=== PATIENT | female | born 1950 | race Caucasian/White ===

== ENCOUNTER 2016-07-20 06:53 | Emergency (ER) ==
[2016-07-20 07:02] VITALS: BP 163/52; TEMP 97.3; BMI 38.7
--- NOTE | 2016-07-20 07:10 | ED.PDOC ---
General ED Provider: Dr. RENETTA CARVAJAL-ER Chief Complaint: Extremity Swelling/Pain Stated Complaint: my leg is swelling Time Seen by Physician: 07:00 Mode of Arrival: Walk-In Information Source: Patient Exam Limitations: No limitations Primary Care Provider: RENETTA CARVAJAL Nursing and Triage Documentation Reviewed and Agree: Yes Musculoskeletal Complaint Exam - Lower Extremity Complaint/Exam Location of Pain: Reports: Right, Leg Mechanism of Injury: Reports: No known trauma Onset/Duration: 24hrs Symptoms Are: Still present Onset of Pain: Reports: Immediate Initial Severity: Mild Current Severity: Mild Location: Reports: Discrete (rle ) Character: Reports: Dull, Aching Alleviating: Reports: None Aggravating: Reports: Movement, Weight bearing Able to Bear Weight: Yes Associated Signs and Symptoms: Reports: Swelling. Denies: Redness, Bruising, Fever, Weakness, Numbness, Tingling Septic Arthritis Risk Factors: Reports: None Related Surgical History: Reports: None Lower Extremity Findings: Present: Swelling, Tenderness, Limited range of motion NV Bundle Intact Distal to Injury: Yes Compartment Syndrome Risk Factors: Present: Pain. Absent: Paralysis, Pallor, Pulselessness, Paresthesias Harrison's Sign Present: Yes Differential Diagnoses: DVT Review of Systems - Review Of Systems Constitutional: Reports: No symptoms Eyes: Reports: No symptoms Ears, Nose, Mouth, Throat: Reports: No symptoms Respiratory: Reports: No symptoms Cardiac: Reports: No symptoms GI: Reports: No symptoms : Reports: No symptoms Musculoskeletal: Reports: Muscle pain Skin: Reports: No symptoms Neurological: Reports: No symptoms Endocrine: Reports: No symptoms Hematologic/Lymphatic: Reports: No symptoms All Other Systems: Reviewed and Negative Past Medical History - Past Medical History Previously Healthy: No Endocrine: Reports: Dyslipidemia Cardiovascular: Reports: Hypertension Respiratory: Reports: None Hematological: Reports: None Gastrointestinal: Reports: None Genitourinary: Reports: None Neuro/Psych: Reports: None Musculoskeletal: Reports: None Cancer: Reports: None Last Menstrual Period: hysterectomy - Surgical History General Surgical History: Reports: None - Family History Family History: Reports: None - Social History Smoking Status: Never smoker Hx Substance Use: No Alcohol Screening: None Lives: With family Physical Exam - Physical Exam Appearance: Well-appearing, No pain distress, Well-nourished Pain Distress: Mild Eyes: PASCALE, EOMI, Conjunctiva clear ENT: Ears normal, Nose normal, Oropharynx normal Neck: Supple Respiratory: Airway patent, Breath sounds clear, Breath sounds equal, Respirations nonlabored Cardiovascular: RRR, Pulses normal, No rub, No murmur GI/: Soft, Nontender, No masses, Bowel sounds normal, No Organomegaly Musculoskeletal: ROM intact, No edema, No calf tenderness, Limited ROM Skin: Warm Neurological: Sensation intact, Motor intact, Reflexes intact, Cranial nerves intact, Alert, Oriented Psychiatric: Affect appropriate Physician Notification - Case Discussed Physician Notified: dr rogers --[facility]--graciously accepted Time of Notification: 07:13 Critical Care Note - Critical Care Note Total Time (mins): 0 Course - Course Orders, Labs, Meds: Orders Category Date Time Status TRANSFER TO OUTSIDE FACILITY .TO [facility] 07/20/16 07:12 Active ([facility], [place]) WRITE TRANSFER/[facility] NOTE ONCE CARE 07/20/16 07:12 Active DISCHARGE ASSESSMENT ONCE DISCHARGE 07/20/16 07:12 Active WRITE DISCHARGE NOTE ONCE DISCHARGE 07/20/16 07:12 Active Vital Signs: Temp Pulse Resp BP Pulse Ox 07/20/16 06:54 97.3 F L 81 20 163/52 H 97 Departure - Departure Time of Disposition: 07:10 Disposition: TSF SHORT-TRM HOSP Discharge Problem: Pain in right lower leg Instructions: Leg Pain (ED) Condition: Good Pt referred to PMD for follow-up: Yes Additional Instructions: go straight to [facility] and see dr rogers Allergies/Adverse Reactions: Allergies No Known Allergies Allergy (Verified 07/20/16 07:02) Home Medications: Ambulatory Orders Clonidine HCl 0.1 mg PO BID 03/27/16 Lisinopril [Zestril] 20 mg PO BID 03/27/16 Rosuvastatin Calcium [Crestor] 5 mg PO BEDTIME 03/27/16 Cholecalciferol (Vitamin D3) [Vitamin D3] 1,000 unit PO DAILY 07/20/16 Citalopram Hydrobromide [Citalopram HBr] 40 mg PO DAILY 07/20/16 Multivitamin [Multi-Vitamin Daily] 1 each PO DAILY 07/20/16 Nifedipine [Nifedipine ER] 30 mg PO DAILY 07/20/16 [place]-3/Dha/Epa/Fish Oil [[place]-3 Fish Oil 1,200 mg Sfgl] 1,200 mg PO DAILY Triamterene/Hydrochlorothiazid [Dyazide] 1 cap PO DAILY 07/20/16 Disposition Discussed With: Patient
== END 2016-07-20 07:45 | disposition short-term general hospital (02) ==
LOC: ED 06:53
DX: M79.604 Pain in right leg (principal); M79.89 Other specified soft tissue disorders
CPT/HCPCS: 99285

== ENCOUNTER 2020-04-04 23:42 | Observation (INO) ==
[2020-04-05 00:16] LABS: HEMOGLOBIN 14.3 g/dl (12.0-16.0); MEAN CORPUSCULAR HEMOGLOBIN 31.3 pg (27.0-31.0); MEAN CORPUSCULAR HGB CONC 34.9 (31.8-35.4); MEAN CORPUSCULAR VOLUME 89.7 fl (81.0-99.0); PLATELET COUNT 195 10^3/uL (140-440); RDW COEFFICIENT OF VARIATION 12.4 % (11.6-14.8); RED BLOOD COUNT 4.57 10^6/ul (4.20-5.40); WHITE BLOOD COUNT 9.62 K/ul (4.6-10.2)
[2020-04-05 00:18] LABS: BILIRUBIN,URINE Negative (NEGATIVE); CLARITY,URINE Slightly (CLEAR); COLOR,URINE Yellow (YELLOW); GLUCOSE, URINE (UA) Negative (NEGATIVE); KETONES,URINE Negative (NEGATIVE); LEUKOCYTE ESTERASE ,URINE 3+ (NEGATIVE); NITRITE,URINE Negative (NEGATIVE); PROTEIN,URINE Negative (NEGATIVE); URINE, BLOOD 1+ (NEGATIVE); UROBILINOGEN,URINE 0.2 (0.2)
[2020-04-05 00:27] LABS: ANISOCYTOSIS NOT PRESENT (NOT PRESENT)
[2020-04-05 00:29] LABS: AMORPHOUS SEDIMENT,UR TRACE (NOT PRESENT); BACTERIA,URINE TRACE (NOT PRESENT); URINE WBC, MICROSCOPIC 20-30 (0-2)
[2020-04-05 00:34] LABS: ALBUMIN 4.55 g/dL (3.5-5.0); ASPARTATE AMINO TRANSFERASE 35.1 U/L (14-36); BILIRUBIN,TOTAL 0.42 mg/dL (0.2-1.3); BLOOD UREA NITROGEN 21.5 mg/dL (7-17); CALCIUM 9.48 mg/dL (8.4-10.2); CARBON DIOXIDE 24.2 mmol/L (22-30.0); CHLORIDE 105.3 mmol/L (98-107); CREATINE KINASE 60.1 U/L (30-135); CREATININE 0.71 mg/dL (0.60-1.30); GLUCOSE 120.3 mg/dL (74-106); POTASSIUM 4.03 mmol/L (3.5-5.1); SODIUM 136.7 mmol/L (134.5-145); TOTAL PROTEIN 7.55 g/dL (6.3-8.2)
[2020-04-05 00:49] LABS: TROPONIN I < 0.012 ng/ml (0.0000-0.120)
[2020-04-05 00:51] LABS: ERYTHROCYTE SEDIMENTATION RATE 17 mm/hr (0-20)
[2020-04-05] MEDS ORDERED: NITROSTAT SL PRN (01:19)
[2020-04-05] MEDS ORDERED: ATROPINE SULFATE PFS IVP PRN (01:19)
[2020-04-05] MEDS ORDERED: TYLENOL PO PRN (01:19)
--- NOTE | 2020-04-05 01:19 | ED.PDOC ---
General ED Provider: Dr. RENETTA CARVAJAL-ER Chief Complaint: Extremity Pain/Injury Stated Complaint: yanna been exercising and my arms hurt Time Seen by Physician: 01:15 Mode of Arrival: Walk-In Information Source: Patient Exam Limitations: No limitations Primary Care Provider: RENETTA CARVAJAL Nursing and Triage Documentation Reviewed and Agree: Yes Does patient meet sepsis criteria?: No System Inflammatory Response Syndrome: Not Applicable Sepsis Protocol: For patient's 13 years and over: Temp is 96.8 and below OR 101 and greater Pulse >90 BPM Resp >20/minute Acutely Altered Mental Status Are patient's symptoms suggestive of a new infection, such as: -Pneumonia -Skin, Soft Tissue -Endocarditis -UTI -Bone, Joint Infection -Implantable Device -Acute Abdominal Infection -Wound Infection -Meningitis -Blood Stream Catheter Infection -Unknown Musculoskeletal Complaint Exam Upper Extremity Complaint/Exam Location of Pain: Reports Right, Left and Arm Mechanism of Injury: Reports No known trauma Symptoms Are: Resolved Timing: Intermittent Episodes Lasting: Minutes Initial Severity: Mild Current Severity: Mild Location: Reports Discrete Character: Reports Dull and Aching Alleviating: Reports None Non-Orthopedic Risk Factors: Reports None NV Bundle Intact Distal to Injury: Yes Compartment Syndrome Risk Factors: Present Pain Differential Diagnoses: Strain, Sprain and Other Quality Indicator For Non-Traumatic Chest Pain/Syncope: EKG Performed Review of Systems Review Of Systems Constitutional: Reports No symptoms Eyes: Reports No symptoms Ears, Nose, Mouth, Throat: Reports No symptoms Respiratory: Reports No symptoms Cardiac: Reports No symptoms GI: Reports No symptoms : Reports No symptoms Musculoskeletal: Reports No symptoms Skin: Reports No symptoms Neurological: Reports No symptoms Endocrine: Reports No symptoms Hematologic/Lymphatic: Reports No symptoms All Other Systems: Reviewed and Negative [facility] Female Reproductive History Menstrual Hx Hysterectomy: Yes Hx Tubal Ligation: No Physical Exam Physical Exam Appearance: Reports Well-appearing Ill-appearing: None Pain Distress: Mild Eyes: Reports PASCALE, EOMI and Conjunctiva clear ENT: Reports Ears normal, Nose normal and Oropharynx normal Neck: Supple Respiratory: Reports Airway patent, Breath sounds clear and Breath sounds equal Cardiovascular: Reports RRR, Pulses normal, No rub and No murmur GI/: Reports Soft, Nontender, No masses, Bowel sounds normal and No Organomegaly Musculoskeletal: Reports Normal strength, ROM intact, No edema and No calf tenderness Skin: Reports Warm, Dry and Normal color Neurological: Reports Sensation intact, Motor intact, Reflexes intact, Cranial nerves intact, Alert and Oriented Psychiatric: Reports Affect appropriate, Mood appropriate and Anxious Critical Care Note Critical Care Note Total Critical Care Time (mins): 0 Course Course Hematology/Chemistry: 04/05/20 00:10 04/05/20 00:10 Orders, Labs, Meds: Lab Review 04/05/20 04/05/20 04/05/20 00:05 00:10 00:10 WBC 9.62 RBC 4.57 Hgb 14.3 Hct 41.0 MCV 89.7 MCH 31.3 H MCHC 34.9 RDW Coeff of Yakov 12.4 Plt Count 195 Neutrophils % (Manual) 40.0 L Lymphocytes % (Manual) 46.0 Monocytes % (Manual) 9.0 Reactive Lymphocytes 5.0 Anisocytosis Not present ESR 17 Sodium 136.7 Potassium 4.03 Chloride 105.3 Carbon Dioxide 24.2 Anion Gap 11.23 BUN 21.5 H Creatinine 0.71 Estimated GFR (MDRD) 82.00 BUN/Creatinine Ratio 30.28 Glucose 120.3 H Calcium 9.48 Total Bilirubin 0.42 AST 35.1 ALT 24.0 Alkaline Phosphatase 105.0 Total Creatine Kinase 60.1 Troponin I < 0.012 Total Protein 7.55 Albumin 4.55 Globulin 3.00 Albumin/Globulin Ratio 1.51 Urine Color Yellow Urine Clarity Slightly Urine pH 5.0 Ur Specific Bow[place] 1.020 Urine Protein Negative Urine Glucose (UA) Negative Urine Ketones Negative Urine Blood 1+ H Urine Nitrite Negative Urine Bilirubin Negative Urine Urobilinogen 0.2 Ur Leukocyte Esterase 3+ H Urine Microscopic RBC 5-10 Urine Microscopic WBC 20-30 Ur Squamous Epith Cells 2-5 Ur Renal Epithelial Cell 2-5 Amorphous Sediment Trace Urine Bacteria Trace Orders Category Date Time Status EKG-(ED ONLY) Stat CARDIO 04/05/20 00:01 Ordered ED OPERATIONS EXAMINER APPLIED .ONCE EMERGENCY 04/05/20 00:01 Active CBC W/ AUTO DIFF Stat LAB 04/05/20 00:10 Completed COMPREHENSIVE METABOLIC PANEL Stat LAB 04/05/20 00:10 Completed CREATINE KINASE Stat LAB 04/05/20 00:10 Completed ESR Stat LAB 04/05/20 00:10 Completed MANUAL DIFFERENTIAL Stat LAB 04/05/20 00:10 Completed TROPONIN I Stat LAB 04/05/20 00:10 Completed URINALYSIS C & S IF INDICATED Stat LAB 04/05/20 00:05 Completed URINE CULTURE Stat LAB 04/05/20 00:05 Received Vital Signs: Temp Pulse Resp BP Pulse Ox 04/04/20 23:43 97.2 F L 99 H 18 162/83 H 97 Discharge Plan Discharge Patient Disposition: PLACED OBSERVATION Discharge Problem: Arm pain Prescriptions: No Action turmeric 400 mg Capsule 800 mg PO DAILY RF: 0 rosuvastatin [Crestor] 5 MG tablet 5 mg PO BEDTIME RF: 0 clonidine HCl 0.1 MG tablet 0.1 mg PO BID RF: 0 lisinopril 40 MG tablet 20 mg PO BID RF: 0 multivitamin [Daily Multi-Vitamin] 1 EACH tablet 1 ea PO DAILY RF: 0 nifedipine 30 MG tablet extended release 24hr 30 mg PO DAILY RF: 0 citalopram 40 MG tablet 40 mg PO DAILY RF: 0 triamterene-hydrochlorothiazid 1 CAP capsule 1 cap PO DAILY RF: 0 cholecalciferol (vitamin D3) [Vitamin D3] 1,000 UNIT capsule 1,000 unit PO DAILY RF: 0 omega 7-ydd-rib-fish oil 1,200 MG capsule 1,200 mg PO DAILY RF: 0 ED Provider: RENETTA CHAU Condition: Good Physician Progress Note: []
[2020-04-05] MEDS ORDERED: ATIVAN PO STA (01:23)
[2020-04-05] MEDS ORDERED: ATIVAN PO PRN (01:24)
--- NOTE | 2020-04-05 01:58 | DI ---
EXAM: Chest, one-view HISTORY: Arm pain FINDINGS: Cardiac and mediastinal contours are normal. Pulmonary vasculature is normal. Lungs are clear. Bony thorax is unremarkable. IMPRESSION: Within normal limits
[2020-04-05 02:01] VITALS: BMI 39.6
[2020-04-05 07:41] LABS: BASOPHILS % (AUTO) 0.6 % (0.0-3.0); EOSINOPHILS % (AUTO) 0.6 % (0.0-7.0); HEMATOCRIT 40.5 % (37.0-47.0); HEMOGLOBIN 13.6 g/dl (12.0-16.0); IMMATURE GRANULOCYTE % (AUTO) 0.2 % (0.0-5.0); LYMPHOCYTES # (AUTO) 2.4 K/uL (0.60-3.4); LYMPHOCYTES % (AUTO) 38.5 (10.0-50.0); MEAN CORPUSCULAR HEMOGLOBIN 30.3 pg (27.0-31.0); MEAN CORPUSCULAR HGB CONC 33.6 (31.8-35.4); MEAN CORPUSCULAR VOLUME 90.2 fl (81.0-99.0); MONOCYTES # (AUTO) 0.5 K/uL (0.4-2.0); MONOCYTES % (AUTO) 7.9 (0-10); NEUTROPHILS # (AUTO) 3.3 K/ul (2.0-6.9); NEUTROPHILS % (AUTO) 52.2 % (42.2-75.2); PLATELET COUNT 176 10^3/uL (140-440); RDW COEFFICIENT OF VARIATION 12.3 % (11.6-14.8); RED BLOOD COUNT 4.49 10^6/ul (4.20-5.40); WHITE BLOOD COUNT 6.34 K/ul (4.6-10.2)
[2020-04-05 07:53] LABS: ALANINE AMINOTRANSFERASE 21.8 U/L (0-35); ALBUMIN 4.27 g/dL (3.5-5.0); ALKALINE PHOSPHATASE 86.2 U/L (53-141); ASPARTATE AMINO TRANSFERASE 27.6 U/L (14-36); BILIRUBIN,TOTAL 0.44 mg/dL (0.2-1.3); BLOOD UREA NITROGEN 20.9 mg/dL (7-17); CARBON DIOXIDE 26.3 mmol/L (22-30.0); CHLORIDE 105.6 mmol/L (98-107); CREATINE KINASE 57.7 U/L (30-135); GLUCOSE 116.4 mg/dL (74-106); POTASSIUM 4.13 mmol/L (3.5-5.1); SODIUM 137.4 mmol/L (134.5-145); TOTAL PROTEIN 7.09 g/dL (6.3-8.2)
[2020-04-05 08:06] LABS: TROPONIN I < 0.012 ng/ml (0.0000-0.120)
[2020-04-05] MEDS ORDERED: ASPIRIN EC PO SCH (08:30)
[2020-04-05] MEDS ORDERED: OMEGA DHA EPA FISH OIL PO SCH (09:00)
[2020-04-05] MEDS ORDERED: ZESTRIL PO SCH (09:00)
[2020-04-05] MEDS ORDERED: CELEXA PO SCH (09:00)
[2020-04-05] MEDS ORDERED: PROCARDIA XL PO SCH (09:00)
[2020-04-05] MEDS ORDERED: MULTIVITAMIN TABLET PO SCH (09:00)
[2020-04-05] MEDS ORDERED: CATAPRES PO SCH (09:00)
[2020-04-05] MEDS ORDERED: VITAMIN D PO SCH (09:00)
[2020-04-05] MEDS ORDERED: DYAZIDE PO SCH (09:00)
[2020-04-05] MEDS ORDERED: OMEGA-3 FISH OIL PO SCH (09:00)
[2020-04-05 10:13] VITALS: TEMP 98
--- NOTE | 2020-04-05 14:09 | STRESSECHO ---
Date of Test: 04/05/2020 Ordering Physician: DR. RENETTA CARVAJAL Occupation: [employer] Reason for Exam: ARM PAIN, HTN, ELEVATED LIPIDS Smoking History: NONE Height: 64" Weight: 234 LBS Current Medications: CRESTOR, OMEGA 3, NIFEDIPINE, LISINOPRIL, CLONIDINE, CITALOPRAM Resting EKG: SINUS RHYTHM/ NONSPECIFIC ST WAVE CHANGES Target Heart Rate: 128/151 S-T SEGMENT STAGE MPH/GRADE HEART RATE BPM BLOOD PRESSURE MMHG RHYTHM +/- ELEVATION DEPRESSION SYMPTOMS AT REST 83 BPM 150/68 MMHG SR X NONE 1 1.7/10% 145 BPM 166/60 MMHG SR X NONE 2 2.5/12% 3 3.4/14% 4 4.2/16% 5 5.0/18% Immediately After 150 BPM SR X SHORT OF AIR Minutes Post Exercise 5" 90 BPM SR X NONE Minutes Post Exercise DURATION OF EXERCISE: 3:36 MAXIMUM HEART RATE REACHED: 150 BPM REASON FOR TERMINATION: SHORT OF AIR 93% OXYGEN SATURATION WITH EXERCISE ON ROOM AIR INTERPRETATION: 1. TEST NEGATIVE FOR ISCHEMIC ST-T WAVE CHANGES 2. NO CHEST PAIN OR ARM PAIN 3. NO ARRHYTHMIAS 4. BLOOD PRESSURE RESPONSE: BORDERLINE NORMAL LEFT VENTRICULAR CONTRACTILITY--RESTING AND POST EXERCISE MTDD
--- NOTE | 2020-04-05 14:12 | ECHOSTRESS ---
Date of Exam: 04/05/2020 Ordering Physician: DR. RENETTA CARVAJAL Reason for Echo: M-Mode Normal Adult Results LV Dimensions Normal Adult Results AoV Opening excursions >1.6 LVEDD-base- 3.5-5.8 Ao root dimensions 2.0-3.7 LVESD-base- 3.1-4.6 L. Atrium dimensions 1.9-3.8 Post. Wall thickness 0.8-1.1 IV septum (thickness) 0.7-1.2 Post. Wall excursion 0.72-1.3 Septal motion Systolic motion R. Ventricular cavity 1.5-2.0 LVEF 60% Paradoxical septal wall motion 2-D: NORMAL LEFT VENTRICULAR CONTRACTILITY--RESTING AND POST EXERCISE M-MODE: MV: AV: TV: PV: CHAMBER SIZE: WALL MOTION: NORMAL LEFT VENTRICULAR CONTRACTILITY--RESTING AND POST EXERCISE PERICARDIUM: INTERPRETATION: 1. NORMAL LEFT VENTRICULAR CONTRACTILITY--RESTING AND POST EXERCISE MTDD
--- NOTE | 2020-04-05 14:17 | ECHO2D ---
Date of Exam: 04/05/2020 Ordering Physician: DR. RENETTA CARVAJAL Room #: 111 Reason for Echo: ARM PAIN, HTN, ELEVATED LIPIDS M-Mode Normal Adult Results LV Dimensions Normal Adult Results AoV Opening excursions >1.6 >1.6 LVEDD-base- 3.5-5.8 4.5 Ao root dimensions 2.0-3.7 3.3 LVESD-base- 3.1-4.6 L. Atrium dimensions 1.9-3.8 4.3 Post. Wall thickness 0.8-1.1 1.3 IV septum (thickness) 0.7-1.2 1.3 Post. Wall excursion 0.72-1.3 NORMAL Septal motion NORMAL Systolic motion R. Ventricular cavity 1.5-2.0 NORMAL LVEF 60% >60% Paradoxical septal wall motion NORMAL 2-D : 2-D M Mode Echocardiogram was performed using apical four chamber and left parasternal long and short axis views. Mitral, tricuspid and aortic valves appear to be normal. Contractility of the left ventricle seems to be normal, so is the cavity size. ENLARGED LEFT ATRIAL CAVITY SIZE. Aortic root appears to be normal. There is no pericardial effusion. There is no thrombus noted in the left ventricle or left atrial cavity. No mitral valve prolapse noted. M-MODE: MV: NORMAL AV: NORMAL TV: NORMAL PV: CHAMBER SIZE: ENLARGED LEFT ATRIAL CAVITY WALL MOTION: NORMAL PERICARDIUM: NORMAL INTERPRETATION: 1. LEFT VENTRICULAR HYPERTROPHY WITH ENLARGED LEFT ATRIAL CAVITY 2. NORMAL VALVES 3. NORMAL LEFT VENTRICULAR CONTRACTILITY MTDD
[2020-04-05 14:34] VITALS: BP 132/74
[2020-04-05] MEDS ORDERED: CRESTOR PO SCH (21:00)
--- NOTE | 2020-06-05 12:58 | SSS ---
PRINCIPAL DIAGNOSIS: 1. Chest pain-Noncardiac. CONSULTATION: Cardiology PROCEDURES: Stress Echo DISCUSSION: 69 year old lady with a history of hyperlipidemia and hypertension who presented to the emergency department with generalized chest discomfort with pain into her arm. In the emergency department her EKG and cardiac enzymes were unrevealing however because of her age and risk factors we felt that she would need further investigations therefore she was admitted to my services in observation with consultation to Dr. Samuels. PAST MEDICAL HISTORY: MEDICATIONS: Tumeric Crestor Clonidine Lisinopril Nifedipine Citalopram Triamterene ALLERGIES: No known drug allergies PAST MEDICAL HISTORY: Hyperlipidemia Hypertension PAST SURGICAL HISTORY: Hysterectomy SOCIAL HISTORY: No history of alcohol or tobacco use. FAMILY HISTORY: Reviewed and thought not to be pertinent to discussion. REVIEW OF SYSTEMS: No headaches, visual changes, tinnitus, shortness of breath, hemoptysis, abdominal pain, blood in the stool, urinary symptoms or seizures. PHYSICAL EXAMINATION: VITAL SIGNS: Temperature 97.2, pulse 99, respirations 18 and blood pressure 162/83. HEENT: Pupils are round. NECK: Supple. CHEST: Clear. CARDIOVASCULAR: Regular rate and rhythm. ABDOMEN: Soft, nontender. EXTREMITIES: Distal extremities without cyanosis or edema. CLINICAL COURSE: The patient was admitted to my services. Dr. Worley kindly saw the patient on consultation. Stress echo was unrevealing for ischemia. At this point her symptoms improved and she was discharged to followup with me in one week. JUN
== END 2020-04-05 13:55 | disposition home or self-care (01) ==
LOC: MEDSURG A 23:42 → ED 23:42 → MEDSURG A 04-05 01:41
PROVIDERS: ADMIT Family Medicine; ATTEND Family Medicine
DX: M79.603 Pain in arm, unspecified; R07.9 Chest pain, unspecified